=== PATIENT | female | born 1945 | race Caucasian/White ===

== ENCOUNTER 2023-09-27 11:53 | Emergency (ER) | payer MEDICARE, SELFPAY ==
[2023-09-27 11:54] VITALS: BP 101/65
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
[2023-09-27] MEDS: NSS 1000 IV (13:03)
[2023-09-27 13:31] LABS: Hematocrit 39.6 % (37.0-47.0); Hemoglobin 13.3 g/dL (12.0-16.0); Mean Corp Hgb Conc. 33.6 g/dL (33.0-37.0); Mean Corpuscular Hgb 31.4 pg (27.0-31.0); Mean Corpuscular Volume 93.6 fL (81.0-99.0); Mean Platelet Volume 10.3 fL (7.4-10.4); Platelet Count 247 10^3/uL (130-400); Red Blood Cell Count 4.23 10^6/uL (4.20-5.40); White Blood Cell Count 18.6 10^3/uL (4.8-10.8)
[2023-09-27 14:01] LABS: Troponin I < 0.012 ng/ml
[2023-09-27 14:07] VITALS: BP 120/81
[2023-09-27 14:33] LABS: ALT (SGPT) 15 U/L (0-35); AST (SGOT) 22 U/L (14-36); Albumin 3.9 g/dl (3.5-5.0); Alkaline Phosphatase 76 U/L (38-126); Blood Urea Nitrogen 20 mg/dl (7-17); Calcium 8.9 mg/dl (8.4-10.2); Carbon Dioxide 24 mmol/L (22-30); Chloride 109 mmol/L (98-107); Glucose 93 mg/dl (70-99); Lipase 145 U/L (23-300); Potassium 4.4 mmol/L (3.5-5.1); Sodium 139 mmol/L (135-145); Total Bilirubin 0.5 mg/dl (0.2-1.3); Total Protein 6.1 g/dl (6.3-8.2); eGFR > 60.00
[2023-09-27 16:23] LABS: Troponin I < 0.012 ng/ml
[2023-09-27 16:30] VITALS: BP 118/65
[2023-09-27 17:45] VITALS: BP 123/94
== END 2023-09-27 17:46 | disposition home or self-care (01) ==
LOC: EMR 11:53
PROVIDERS: EMERGENCY PHYSICIAN Emergency Medicine; FAMILY PHYSICIAN Internal Medicine
DX: R55 Syncope and collapse (principal); R68.84 Jaw pain; I10 Essential (primary) hypertension
CPT/HCPCS: 96360; 80053; 83690; 84484; 85027; 93005; 96361; 99284